=== PATIENT | male | born 1930 | race Caucasian/White ===

== ENCOUNTER 2019-09-23 18:06 | Observation (INO) | payer OTHER, MEDICARE ==
[~2019-09-23] VITALS: Ht 180.3 cm; Wt 78.3 kg
[~2019-09-23 18:06] MED LIST: AMIODARONE200 MG PO; AMLODIPINE5 MG PO; ANTIVERT25 MG OR; BAYER ASPIRIN E81 MG PO; CELEBREX100 MG PO; CORDARONE200 MG PO; COREG6.25 MG PO; COZAAR50 MG PO; DIGOXIN0.125 MG PO; LIPITOR20 MG PO; LOSARTAN POT25 MG PO; NITROSTAT0.4 MG SL; PLAVIX75 MG OR
--- NOTE | 2019-09-23 18:06 | NUR ---
PT TO ROOM VIA EMS STRETCHER.
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
--- NOTE | 2019-09-23 19:30 | NUR ---
PT RESTING ON STRETCHER WITH SON AT BEDSIDE. PT DENIES ANY PAIN
--- NOTE | 2019-09-23 20:30 | NUR ---
PT ADVISED OF PLAN OF CARE, CALL LIGHT WITHIN REACH
--- NOTE | 2019-09-23 21:25 | NUR ---
PT REFUSED PAIN MEDICATION. MD NOTIFIED AND DISCUSSED PLAN OF CARE
--- NOTE | 2019-09-23 22:40 | NUR ---
GAVE REPORT TO ANDREW
--- NOTE | 2019-09-23 22:42 | NUR ---
REPORT CALLED TO [facility]. PATIENT READIED FOR TRANSPORT TO FLOOR.
--- NOTE | 2019-09-23 23:00 | NUR ---
DELAY IN TRANSPORT TO FLOOR DUE TO CRITICAL PATIENT IN THE DEPARTMENT. PATIENT AWARE OF DELAY AND VERBALIZES UNDERSTANDING.
--- NOTE | 2019-09-23 23:40 | NUR ---
PATIENT TO FLOOR VIA STRETCHER.
[2019-09-23 23:45] VITALS: BP 147/68
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
--- NOTE | 2019-09-24 01:39 | NUR ---
PATIENT INCONT OF URINEIN BED-ASSISTED OOB TO THE BSC TO VOID SOME MORE URINE. ASSISTED BACK TO BED. DAUGHTER REMAINS AT BEDSIDE RESTING ON COT PROVIDED. IVF PATENT AND INFUSING LEFT HAND SITE AT 75CC/HR. SAFETY PRECAUTIONS REINFORCED. CALL LIGHT IN REACH. WILL CONT TO MONITOR.
[2019-09-24 03:37] VITALS: BP 152/66
--- NOTE | 2019-09-24 06:26 | NUR ---
PATIENT RESTING IN BED WITH EYES CLOSED. RESP ARE EVEN AND UNLABORED. CALL LIGHT IN REACH. WILL CONT TO MONITOR.
[2019-09-24 07:28] VITALS: BP 142/65
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
--- NOTE | 2019-09-24 12:15 | NUR ---
PATIENT A/OX4, NO C/O PAIN, NO S/S RESP DISTRESS, PATIENT ON ROOM AIR, EDUCATED PATIENT ABOUT REASON WHY BEDSIDE COMMODE WILL BE MOVE BENEFICIAL IN REDUCING RISK OF POTENTIAL FALLS, PATIENT IS MAX ASSIST AND VERY UNSTEADY WHEN PIVOTING FROM BED TO WHEELCHAIR, WILL CONTINUE TO MONITOR PATIENT, CALL LIGHT WITHIN REACH
[2019-09-24 15:08] LABS: HEMATOCRIT 35.3 % (39.0-50.0); HEMOGLOBIN 11.2 g/dl (14.0-18.0); MEAN CELL VOLUME 105.4 fL CALC (80.0-100.0); MEAN CORPUSCULAR HGB 33.4 pG CALC (26.0-32.0); MEAN CORPUSCULAR HGB CONC 31.7 g/L CALC (32.0-36.0); RED BLOOD COUNT 3.35 mill/uL (4.70-6.10)
[2019-09-24 15:24] LABS: ALBUMIN 4.5 g/dL (3.2-5.0); ALKALINE PHOSPHATASE 61 u/l (38-126); ANION GAP 11 (6-22 (CALC)); BILIRUBIN, TOTAL 0.8 mg/dL (0.0-1.4); BUN 27 mg/dL (8-23); BUN/CREATININE RATIO 27 (12-20 (CALC)); CARBON DIOXIDE 31 mmol/l (22-30); CHLORIDE 102 mmol/l (95-108); GFR > 60 ML/MIN (>=60 (CALC)); GFR FOR AFR.AMER. > 60 ML/MIN (>=60 (CALC)); POTASSIUM 4.4 mmol/l (3.5-5.1); SGOT/AST 38 u/l (19-48); SODIUM 139 mmol/l (137-146); TOTAL PROTEIN 7.7 g/dL (6.3-8.2)
[2019-09-24 16:10] LABS: TSH, 3RD GENERATION 4.57 uIU/mL (0.47 - 4.68)
--- NOTE | 2019-09-24 16:30 | NUR ---
PATIENT A/OX4 C/O PAIN 08/04, PAIN LEVEL INCREASE WITH MOVEMENT OF LEFT LEG, NO S/S RESP DISTRESS, PATIENT ON ROOM AIR, PATIENT HAD LARGE BOWEL MOVEMENT, TRANSPORTED PATIENT VIA WHEELCHAIR TO CT SCAN
[2019-09-24 16:36] VITALS: BP 159/71
[2019-09-24 18:20] VITALS: BP 168/78
--- NOTE | 2019-09-24 19:00 | NUR ---
ASHKANVD REPORT FROM NURSE NITA PATIENT PS 08/04 OVER LEFT HIP, EVEN UNLABORED BREATHING CALL LIGHT AT REACH.
--- NOTE | 2019-09-24 21:00 | NUR ---
PATIENT ALERT ORIENTED, ABLE TO MAKE NEEDS KNONW, WITH SALINE LOCK ON RFA G 20, LBM 3/1, PAIN SCALE 1/10 LEFT HIP, AND STATED THAT PAIN MEDICATION NOT NEEDED AT THIS TIME, AND MADE AWARE OF THE ORDER FOR CONOLLY CONSULT AND STATED NOT NEEDED BECAUSE HE DOES NOT HAVE FRACTURES.WILL CONTINUE TO MONITOR.
[2019-09-24 21:12] VITALS: BP 157/73
[2019-09-24 21:15] VITALS: BP 142/68
[2019-09-24 23:58] LABS: URINE BILIRUBIN - DIPSTICK NEGATIVE (NEGATIVE); URINE BLOOD DIPSTICK NEGATIVE (NEGATIVE); URINE COLOR YELLOW; URINE GLUCOSE - DIPSTICK NEGATIVE (NEGATIVE); URINE KETONE NEGATIVE (NEGATIVE); URINE LEUK ESTERASE NEGATIVE (NEGATIVE); URINE NITRITE - DIPSTICK NEGATIVE (Negative); URINE PROTEIN - DIPSTICK NEGATIVE (NEG-TRACE); URINE SPECIFIC GRAVITY 1.025; URINE UROBILINOGEN - DIPSTICK 0.2 E.U./dL (0.2)
--- NOTE | 2019-09-25 | NUR ---
PATIENT APPEARS TO BE SLEEPING WITH EYES CLOSED WITH EVEN UNLABORTED BREATHING CALL LIGHT AT REACH.
[2019-09-25 03:42] VITALS: BP 144/65
--- NOTE | 2019-09-25 06:10 | NUR ---
PATIENT SLEEPING WITH EYES CLOSED, EVEN UNLABORED BREATHING CALL LIGHT AT REACH.
--- NOTE | 2019-09-25 07:21 | NUR ---
REPORT RECEIVED FROM LULY HUANG. PT RESTING IN BED SEMI FOWLERS; ALERT AND ORIENTED X 3. REQUESTING TO GET UP AND DO AM CARE. DENIES PAIN AT REST, BUT SEVERE PAIN TO LEFT LEG WITH MOVEMENT; DECLINES ANY PAIN MEDICATION AT THIS TIME. RESPIRATIONS EVEN AND UNLABORED ON ROOM AIR. LEFT KNEE SWOLLEN WITH BRUISING TO MEDIAL AND POSTERIOR AREAS. PT ASSISTED INTO WHEELCHAIR AND INTO BATHROOM WITH 2 PERSON STAND BY ASSIST. PLAN OF CARE REVIEWED. PT ENCOURAGED TO VERBALIZE CONCERNS. STATES UNDERSTANDING. SAFETY MEASURES IN PLACE. CALL LIGHT WITHIN REACH.
[2019-09-25 08:00] VITALS: BP 135/63
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
--- NOTE | 2019-09-25 09:21 | NUR ---
I SPOKE WITH JEANNINE FROM DR. PEREIRA OFFICE @6678AM AND SHE STATED THAT REVIEWED THE XRAYS OF THE HIP/THIGH. THERE WERE NO FRACTURES SEEN AND HE REQUESTED THAT THE PT BE SEEN IN THE CLINIC. NOTIFIED RN, NORIS LYLE AND DR. GRUBER.
--- NOTE | 2019-09-25 09:30 | NUR ---
DR. GRUBER AT BEDSIDE TO DISCUSS PLAN OF CARE. CASE MANAGEMENT CONSULTED FOR POSSIBLE D/C TO REHAB IN [place]. PT WILLING TO GO TO REHAB.
--- NOTE | 2019-09-25 12:30 | NUR ---
PT UP TO BSC TO VOID; ONE PERSON ASSIST; HAS TROUBLE WITH MOVEMENT RELATED TO LEFT KNEE PAIN. CONTINUES TO DECLINE MEDICATIONS, BUT DID GET THE PNA VACCINE THIS AM. SITTING UP ON EDGE OF BED FOR LUNCH.
[2019-09-25 15:50] VITALS: BP 158/83
--- NOTE | 2019-09-25 16:00 | NUR ---
SON AND CASE MANAGEMENT AT BEDSIDE. NO REQUESTS OR CONCERNS AT THIS TIME.
--- NOTE | 2019-09-25 19:00 | NUR ---
RECEIEVED REPORT FROM NURSE NORIS PATIENT RESTING IN BED EYES CLOSED, NO DISCOMFORTS NOTED AT THIS TIME, CALL LIGHT AT REACH.
[2019-09-25 19:30] VITALS: BP 133/67
--- NOTE | 2019-09-25 20:00 | NUR ---
PATIENT ALERT AND ORIENTED, ABLE TO MAKE NEEDS KNOWN, WITH SALINE LOCK ON RFA, PATENT FLUSHES WELL, LBM 3/, CONTINENT OF BOWEL AND BLADDER, PATIENT HAS EVEN UNLABORED BREATHING, REFUSED STOOL SOFTENER STATED WILL WAIT TILL TOMORROW,.
--- NOTE | 2019-09-25 23:30 | NUR ---
PATIENT REFUSED LOVENOX STATING HE IS DOING HOLISTIC MEDICINE
[2019-09-26 04:00] VITALS: BP 134/67
--- NOTE | 2019-09-26 04:48 | NUR ---
PATIENT RESTING IN BED WITH EYES CLOSED, EVEN UNLABORDED BREATHING, LEFT HIP PAIN PS 1/10 TOLERABL PER PATIENT.CALL LIGHT AT REACH.
[2019-09-26 05:26] LABS: HEMATOCRIT 31.1 % (39.0-50.0); MEAN CELL VOLUME 105.4 fL CALC (80.0-100.0); MEAN CORPUSCULAR HGB 33.9 pG CALC (26.0-32.0); MEAN CORPUSCULAR HGB CONC 32.2 g/L CALC (32.0-36.0); RED BLOOD COUNT 2.95 mill/uL (4.70-6.10); RED CELL DISTRI WIDTH 17.5 % (11.5-15.5)
[2019-09-26 05:51] LABS: ANION GAP 10 (6-22 (CALC)); BUN 19 mg/dL (8-23); BUN/CREATININE RATIO 26 (12-20 (CALC)); CARBON DIOXIDE 31 mmol/l (22-30); CHLORIDE 101 mmol/l (95-108); CREATININE 0.7 mg/dL (0.7-1.3); GFR > 60 ML/MIN (>=60 (CALC)); GFR FOR AFR.AMER. > 60 ML/MIN (>=60 (CALC)); POTASSIUM 4.4 mmol/l (3.5-5.1); SODIUM 138 mmol/l (137-146)
--- NOTE | 2019-09-26 07:00 | NUR ---
SHIFT CHANGE REPORT, PT AWAKE ALERT AND ORIENTED RESTING IN BED, DENIES PAIN AT THIS TIME BUT STATES HE HURTS WHENEVER HE MOVES, BED IN LOWEST POSITION AND CALL MILIAN IN REACH.
[2019-09-26 09:27] VITALS: BP 119/50
--- NOTE | 2019-09-26 09:43 | NUR ---
Patient was identified by name and . S: "I am doing a little better each day." O: Patient instructed in supine to sitting EOB and needed Mod A to scoot forward. Sup -> sit Min A, sit -> stand Min A. Patient instructed in using R.W. to chair besides bed and patient performed with Min A to recliner with VCs for proper hand placement. Patient performed grooming in sitting Independently and reported feeling good with not too much pain today. A: Patient made good progress toward goals. P: D/C to IRF/SNF for rehab. Am Pac Score = 16
--- NOTE | 2019-09-26 10:21 | NUR ---
EDUCAATED ON ALL SHEDULED MEDS, REFUSED MOST MEDS STATING HE BELIEVES IN HOLISTIC MEDS ONLY. HE IS ORIENTED, KNOWLEDGEABLE AND CAPABLE OF MEKING DECISIONS ON HEALTH CARE. ASSISTED FROM CHAIR TO BED WITH MAX ASSIST AND COMPLAINS OF PAIN DURING MOVEMENT BUT STATES HIS PAIN IS RELIEVED WHEN SETTLED IN BED, WILL CONTINUE TO MONITOR.
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
[2019-09-26 15:05] VITALS: BP 156/70
[2019-09-26] MEDS ORDERED: PAIN & FEVER325 MG PO (16:12)
--- NOTE | 2019-09-26 18:45 | NUR ---
Discharge instructions given. Patient verbalizes understanding of same. Discharged in stable condition via [facility] with *Other. All belongings sent with pt.
== END 2019-09-26 18:42 | DRG 605 ==
LOC: ED 18:06 → ED-I 21:39 → ED 21:48 → MS2 21:49 → ED-I 21:58 → ED 21:58 → MS2 09-26 18:42
PROVIDERS: Internal Medicine; Nurse Practitioner Family; ADMIT Internal Medicine; ATTEND Internal Medicine
PROC: 3E0234Z Introduction of Serum, Toxoid and Vaccine into Muscle, Percutaneous Approach (ICD-10-PCS; principal; 2019-09-25)
DX: S70.02XA Contusion of left hip, initial encounter (principal); S70.01XA Contusion of right hip, initial encounter; S20.212A Contusion of left front wall of thorax, initial encounter; S80.02XA Contusion of left knee, initial encounter; I48.91 Unspecified atrial fibrillation; I10 Essential (primary) hypertension; V43.52XA Car driver injured in collision with other type car in traffic accident, initial encounter; Z79.899 Other long term (current) drug therapy; Z95.1 Presence of aortocoronary bypass graft; Z23 Encounter for immunization
CPT/HCPCS: G0378; J1650